=== PATIENT | male | born 1945 | race Caucasian/White ===

== ENCOUNTER 2016-07-24 15:55 | Observation (INO) | payer OTHER, BC ==
--- NOTE | 2016-07-24 16:16 | PDOC ---
History of Present Illness - General History Source: Patient, Family, Old Records Exam Limitations: No Limitations - History of Present Illness Initial Comments: 07/24/16 17:25 The patient is a 71 year old male with a significant past medical history of anemia, diabetes, HTN, colitis, advanced chronic kidney disease, and chronic GI bleeding, who presents to the emergency department today for further evaluation of weakness for over one month. The patient states that on Wednesday he received blood work and when his results came back today his hemoglobin level was 6.6. The patients doctor instructed him to come to the hospital for further assistance. The patient notes that he has associated low energy and dyspnea on mild exertion of 1 block. The patient notes that on 06/24/16 his anemia was treated with IV iron and procrit. The patient reports that on 06/25/16 he received a transfusion (2 units) subsequent Hemoglobin was 9.0. The patient reports he had a colonoscopy showing non-specific colitis and upper endoscopy that was negative on 07/08/16. As per patient's family, Dr. Pena' initial reports indicated left sided colitis, possibly crohn's disease but, a biopsy indicated negative for crohn's. The patient states that he is scheduled for a capsule study this wednesday. The patient reports some melena but this has been chronic for more than a month. PCP: Dr. Zohaib De Jesus [phone] John Zarate [phone] HOSPITAL PERSONNEL DIRECTOR: Dr. Davide Martínez [phone] RN OR LVN: Dr. Weston Pena [phone]: [address] Iván Travis [phone] UROLOGIST: Dr. Pk Ennis [phone] THORACIC SURGEON: Dr. Mignon Bella [phone] ADRENAL SURGEON: Dr. Kiara Garner [phone] The patient denies fever, chills, and sweats. The patient denies nausea, vomiting, and diarrhea. The patient denies chest pain and cough. PAST MEDICAL HISTORY: Anemia, Diabetes, HTN, advanced chronic kidney disease, colitis, chronic GI bleeding PAST SURGICAL HISTORY: Left lung surgery (1 resection) for removal of cancerous tumor (2010), bilateral hip replacement. 1 recall replacement of left hip, benign adrenalectomy at time of lung surgery, appendectomy, tonsillectomy, cholecystectomy FAMILY HISTORY: Mother had diabetes. SOCIAL HISTORY: Quit smoking 20 years ago. Drinks once per month. MEDICATIONS: Reviewed ALLERGIES: As per nursing notes 07/24/16 17:51 <Antonio De La O - Last Filed: 07/24/16 17:50> <Dario Pratt - Last Filed: 07/24/16 17:52> - General Chief Complaint: Weakness Stated Complaint: LOW BLOOD COUNT Time Seen by Provider: 07/24/16 16:04 Past History <Antonio De La O - Last Filed: 07/24/16 17:50> - Past Medical History Asthma: (COPD) Cancer: Yes (LUNG CA) Cardiac Disorders: Yes COPD: Yes Diabetes: Yes HTN: Yes Hypercholesterolemia: Yes Other medical history: ESRD STG4 - Psycho/Social/Smoking Cessation Hx Anxiety: No Suicidal Ideation: No Smoking History: Never smoked Hx Alcohol Use: No Drug/Substance Use Hx: No Substance Use Type: None <Dario Pratt - Last Filed: 07/24/16 17:52> - Past Medical History Allergies/Adverse Reactions: Allergies Allergy/AdvReac Type Severity Reaction Status Date / Time No Known Allergies Allergy Verified 07/24/16 15:56 Home Medications: Ambulatory Orders Aclidinium [place] [Tudorza Pressair] 400 mcg IH DAILY 07/24/16 Albuterol Sulfate [Proair Respiclick] 90 mcg IH DAILY 07/24/16 Aspirin [Ecotrin] 325 mg PO DAILY 07/24/16 Dicyclomine HCl [Bentyl -] 0 mg PO Q8H PRN 07/24/16 Diltiazem Cd [Cardizem Cd -] 180 mg PO DAILY 07/24/16 Escitalopram Oxalate [Lexapro -] 20 mg PO DAILY 07/24/16 Fenofibric Acid [Trilipix -] 135 mg PO DAILY 07/24/16 Ferrous Sulfate [Feosol] 325 mg PO DAILY 07/24/16 Folic Acid 0.8 mg PO DAILY 07/24/16 Hydralazine HCl 100 mg PO BID 07/24/16 Hydrochlorothiazide [Hctz -] 25 mg PO DAILY 07/24/16 Insulin Glargine,Hum.rec.anlog [Lantus Solostar PEN (NF)] 38 units SQ DAILY 03/30 Mometasone Furoate [Asmanex] 220 mcg IH DAILY 07/24/16 Niacin (Inositol Niacinate) [Niacin Flush Free 500 mg Cap] 500 mg PO BID [place]-3/Dha/Epa/Fish Oil [[place] 3 500 Softgel] 2 each PO DAILY 07/24/16 Omeprazole 40 mg PO DAILY 07/24/16 Rosuvastatin Calcium [Crestor] 10 mg PO DAILY 07/24/16 Salmeterol Xinafoate [Serevent Diskus] 50 mcg IH DAILY 07/24/16 Sodium Bicarbonate - 650 mg PO BID 07/24/16 Testosterone [Androgel] 10 gm TD DAILY 07/24/16 Zolpidem Tartrate [Ambien] 10 mg PO HS 07/24/16 Review of Systems - Review of Systems Able to Perform ROS?: Yes Comments:: 07/24/16 17:26 CONSTITUTIONAL: Present: Generalized Weakness Absent: Fever, Chills, Diaphoresis, Malaise, Loss of Appetite HEENT: Absent: Rhinorrhea, Nasal Congestion, Throat Pain, Throat Swelling, Difficulty Swallowing, Mouth Swelling, Ear Pain, Eye Pain, Visual Changes CARDIOVASCULAR: Absent: Chest Pain, Syncope, Palpitations, Irregular Heart Rate, Lightheadedness , Peripheral Edema RESPIRATORY: Present: SOB with exertion Absent: Cough, Orthopnea, Wheezing, Stridor, Hemoptysis GASTROINTESTINAL: Present: Melena Absent: Abdominal pain, Abdominal Distension, Nausea, Vomiting, Diarrhea, Constipation, Hematochezia GENITOURINARY: Absent: Dysuria, Frequency, Urgency, Hesitancy, Flank Pain, Genital Pain MUSCULOSKELETAL: Absent: Myalgia, Arthralgia, Joint Swelling, Back pain, Neck Pain SKIN: Absent: Rash, Itching, PalloR HEMATOLOGIC/IMMUNOLOGIC: Absent: Easy Bleeding, Easy Bruising, Lymphadenopathy, Frequent infections ENDOCRINE: Absent: Unexplained Weight Gain, Unexplained Weight Loss, Heat Intolerance, Cold Intolerance NEUROLOGIC: Absent: Headache, Focal Weakness, Paresthesias, Vertigo, Lightheadedness, Unsteady Gait, Seizure, Mental Status Changes, Incontinence PSYCHIATRIC: Absent: Anxiety, Depression <Antonio De La O - Last Filed: 07/24/16 17:50> *Physical Exam - Vital Signs Last Vital Signs Temp Pulse Resp BP Pulse Ox 99.0 F 76 20 134/76 100 07/24/16 15:56 07/24/16 15:56 07/24/16 15:56 07/24/16 15:56 07/24/16 15:56 - Physical Exam Comments: 07/24/16 17:26 GENERAL: The patient is awake, alert, and fully oriented, in no acute distress. HEAD: Normal with no signs of trauma. EYES: Pupils equal, round and reactive to light, extraocular movements intact, sclera anicteric, (+) Eye pale conjunctiva ENT: Ears normal, nares patent, oropharynx clear without exudates. Moist mucous membranes. NECK: Normal range of motion, supple without lymphadenopathy, JVD, or masses. LUNGS: Breath sounds equal, clear to auscultation bilaterally. No wheezes, and no crackles. HEART: Regular rate and rhythm, normal S1 and S2 without murmur, rub or gallop. ABDOMEN: Soft, nontender, normoactive bowel sounds. No guarding, no rebound. No masses. RECTAL: (+) No external lesions, stool is brown with small flecks of red, no masses. EXTREMITIES: Normal range of motion, (+) trace pitting bilateral ankle edema . No clubbing or cyanosis. No cords, erythema, or tenderness. NEUROLOGICAL: Cranial nerves II through XII grossly intact. Normal speech. PSYCH: Normal mood, normal affect. SKIN: Warm, Dry, normal turgor, no rashes or lesions noted. <Antonio De La O - Last Filed: 07/24/16 17:50> - Vital Signs Last Vital Signs Temp Pulse Resp BP Pulse Ox 99.0 F 76 20 134/76 100 07/24/16 15:56 07/24/16 15:56 07/24/16 15:56 07/24/16 15:56 07/24/16 15:56 <Dario Pratt - Last Filed: 07/24/16 17:52> Heart Score/ECG Review - ECG Impressions Comment:: 07/24/16 17:27 Twelve-lead EKG was performed and reviewed by me. There is normal sinus rhythm at a rate of 73 beats per minute. The axis is normal. The intervals are normal. Inferior Q waves without acute ST-T wave changes, no old ECG for comparison. There are no abnormal ST elevations or depressions. There are no significant T wave abnormalities. Impression: Possible inferior infarct, age indeterminate. <Antonio De La O - Last Filed: 07/24/16 17:50> ED Treatment Course - LABORATORY CBC & Chemistry Diagram: 07/24/16 16:23 07/24/16 16:25 - ADDITIONAL ORDERS Additional order review: Laboratory Results 07/24/16 07/24/16 07/24/16 16:25 16:25 16:25 INR Sodium 138 Potassium 4.5 Chloride 104 Carbon Dioxide 24 Anion Gap 10 BUN 58 H Creatinine 3.7 H Creat Clearance w eGFR 16.32 Random Glucose 164 H Calcium 8.8 Total Bilirubin 0.5 AST 32 ALT 16 Alkaline Phosphatase 42 LD Total Creatine Kinase 252 H CK-MB (CK-2) Cancelled 7.1 H CK-MB (CK-2) Rel Index 2.8 Troponin I 0.03 Total Protein 6.0 L Albumin 3.6 Urine Color Urine Appearance Urine pH Ur Specific [place] Urine Protein Urine Glucose (UA) Urine Ketones Urine Blood Urine Nitrite Urine Bilirubin Urine Urobilinogen Ur Leukocyte Esterase Urine RBC Urine WBC Urine Bacteria Stool Occult Blood Crossmatch 07/24/16 07/24/16 07/24/16 16:23 16:23 16:23 INR 1.07 Sodium Potassium Chloride Carbon Dioxide Anion Gap BUN Creatinine Creat Clearance w eGFR Random Glucose Calcium Total Bilirubin AST ALT Alkaline Phosphatase LD Total 203 H Creatine Kinase CK-MB (CK-2) CK-MB (CK-2) Rel Index Troponin I Total Protein Albumin Urine Color Urine Appearance Urine pH Ur Specific [place] Urine Protein Urine Glucose (UA) Urine Ketones Urine Blood Urine Nitrite Urine Bilirubin Urine Urobilinogen Ur Leukocyte Esterase Urine RBC Urine WBC Urine Bacteria Stool Occult Blood Crossmatch See Detail 07/24/16 16:23 INR Sodium Potassium Chloride Carbon Dioxide Anion Gap BUN Creatinine Creat Clearance w eGFR Random Glucose Calcium Total Bilirubin AST ALT Alkaline Phosphatase LD Total Creatine Kinase CK-MB (CK-2) CK-MB (CK-2) Rel Index Troponin I Total Protein Albumin Urine Color Yellow Urine Appearance Clear Urine pH 5.0 Ur Specific [place] 1.020 Urine Protein 2+ H Urine Glucose (UA) Negative Urine Ketones Negative Urine Blood Negative Urine Nitrite Negative Urine Bilirubin Negative Urine Urobilinogen 0.2 e.u/dl Ur Leukocyte Esterase Negative Urine RBC 0-2 Urine WBC 0-1 Urine Bacteria Few Stool Occult Blood Negative Crossmatch 07/24/16 16:23 RBC 2.43 L MCV 89.0 MCHC 32.7 RDW 14.3 MPV 8.9 Neutrophils % 74.1 Lymphocytes % 13.9 Monocytes % 5.7 Eosinophils % 4.3 Basophils % 2.0 <Antonio De La O - Last Filed: 07/24/16 17:50> - LABORATORY CBC & Chemistry Diagram: 07/24/16 16:23 07/24/16 16:25 <Dario Pratt - Last Filed: 07/24/16 17:52> Medical Decision Making - Medical Decision Making 07/24/16 16:52 Symphony microblogged. 07/24/16 17:00 Dr. Figueroa called ER. Case discussed with Dr. Pratt, agreed to admit to observation. <Antonio De La O - Last Filed: 07/24/16 17:50> - Medical Decision Making 07/24/16 16:57 Patient is a 71-year-old man with a history of hypertension, diabetes, advanced chronic kidney disease not yet on dialysis, anemia, colitis, chronic GI bleeding. In June he was transfused for a hemoglobin of 6.8, received 2 units. EGD was normal. Colonoscopy showed nonspecific colitis with a reportedly negative biopsy. I reviewed the EGD and colonoscopy report, but not the pathology report. Patient was seen by his physician for lab work on Wednesday and his hemoglobin was 6.6. He continues to have chronic exertional dyspnea upon one block of walking, no chest pain, no other complaints. On examination: Lungs are clear, heart is regular rhythm without murmur. Abdomen is benign. Rectal examination with brown stool, small flecks of red blood, no masses. Extremities with trace ankle edema bilaterally. Impression: Symptomatic anemia with very low hemoglobin. His anemia is out of proportion to his chronic kidney disease, suggesting also ongoing GI blood loss. He is currently undergoing evaluation with a sales force developer for his chronic anemia. Patient presents for transfusion per the recommendation of his primary physician. She has no ischemic chest pain symptoms. Twelve-lead EKG shows inferior Q waves that appear to be most likely chronic. Labs and troponin pending. Patient will be admitted to observation for plan to transfuse 2 units of packed red blood cells based on his hemoglobin of 6.6 from yesterday. <Dario Pratt - Last Filed: 07/24/16 17:52> *DC/Admit/Observation/Transfer - Attestations Scribe Attestion: 07/24/16 17:26 Documentation prepared by Antonio De La O, acting as medical hospital sales for Dario Pratt MD. <Antonio De La O - Last Filed: 07/24/16 17:50> - Discharge Dispostion Admit: Yes Decision to Admit order Date/Time: 07/24/16 17:[address] Thierry Figueroa <Dario Pratt - Last Filed: 07/24/16 17:52> Diagnosis at time of Disposition: Anemia Qualifiers: Anemia type: unspecified type Qualified Code(s): D64.9 - Anemia, unspecified Chronic kidney disease Qualifiers: Chronic kidney disease stage: unspecified stage Qualified Code(s): N18.9 - Chronic kidney disease, unspecified Dyspnea Qualifiers: Dyspnea type: dyspnea on exertion Qualified Code(s): R06.09 - Other forms of dyspnea - Discharge Dispostion Condition at time of disposition: Stable - Referrals Referrals: Zohaib Pizarro MD [Primary Care Provider] -
[2016-07-24 16:35] LABS: URINE APPEARANCE Clear; URINE BILIRUBIN Negative (NEGATIVE); URINE BLOOD Negative (NEGATIVE); URINE GLUCOSE (UA) Negative (NEGATIVE); URINE KETONE Negative (NEGATIVE); URINE LEUK ESTERASE Negative (NEGATIVE); URINE NITRITE Negative (NEGATIVE); URINE UROBILINOGEN 0.2 E.U/dl (0.2-1.0)
[2016-07-24 16:39] LABS: MCH 29.1 pg (25.7-33.7); MCHC 32.7 g/dl (32.0-35.9); URINE COLOR YELLOW; URINE PROTEIN 2+ (NEGATIVE); WHITE BLOOD COUNT 8.6 K/mm3 (4.0-10.0)
[2016-07-24 16:40] LABS: EOSINOPHIL 4.3 % (0-4.5); MEAN PLT VOLUME 8.9 fl (7.5-11.1); NEUTROPHILS 74.1 % (42.8-82.8); PLATELET COUNT 288 K/MM3 (134-434); RDW 14.3 % (11.9-15.9)
[2016-07-24 16:57] LABS: ALBUMIN 3.6 g/dl (3.5-5.0); BILIRUBIN,TOTAL 0.5 mg/dl (0.2-1.0); CALCIUM 8.8 mg/dl (8.4-10.2); CREATININE 3.7 mg/dl (0.6-1.3)
[2016-07-24 16:59] LABS: INR 1.07 (0.82-1.09)
[2016-07-24 17:06] LABS: STOOL FOR OCCULT BLOOD NEGATIVE (NEGATIVE)
[2016-07-24 17:07] LABS: URINE BACTERIA FEW /hpf (NEGATIVE); URINE RBC 0-2 /hpf (0-3); URINE WBC 0-1 (3-5)
[2016-07-24 17:08] LABS: CK MB 7.1 ng/ml (0.3-4.0); TROPONIN I (DFP) 0.03 ng/ml (0.03-0.50)
[2016-07-24 18:19] LABS: FERRITIN 22.647 ng/ml (16.4-293.9)
[2016-07-24] MEDS ORDERED: DICYCLOMINE HCL 10 MG CAPSULE PO PRN (19:56)
[2016-07-24] MEDS ORDERED: ALBUTEROL SO4 6.7 GM HFA INHALER IH PRN (19:59)
[2016-07-24] MEDS ORDERED: HEMOQUE TEST 1 EACH EACH ONE (20:10)
--- NOTE | 2016-07-24 21:38 | HP ---
CHIEF COMPLAINT: Generalized weakness/anemia PCP: Dr. De Jesus and Dr. John Zarate [phone] REGISTERED RADIATION THERAPIST: Dr. Davide Martínez [phone] DAM ATTENDANT: Dr. Weston Pena [phone]: [address] Iván Travis [phone] UROLOGIST: Dr. Pk Ennis [phone] THORACIC SURGEON: Dr. Mignon Bella [phone] ADRENAL SURGEON: Dr. Kiara Garner [phone] HISTORY OF PRESENT ILLNESS: This is a 71 year old male with a significant past medical history of anemia, diabetes, HTN, colitis, CKD, COPD, and chronic GI bleeding, who presents to the emergency department today for further evaluation of weakness for over one month. The patient states that on Wednesday he had blood work done and when his results came back today his hemoglobin level was 6.6. The patients doctor instructed him to come to the hospital for further assistance. The patient notes that he has associated low energy and dyspnea on mild exertion of 1 block. The patient notes that on 06/24/16 his anemia was treated with IV iron and procrit. The patient reports that on 06/25/16 he received a transfusion (2 units) subsequent Hemoglobin was 9.0. The patient reports he had a colonoscopy showing non-specific colitis and upper endoscopy that was negative on 07/08/16. The patient states that he is scheduled for a capsule study this wednesday. The patient reports some melena but this has been chronic for more than a month and he has stopped taking his iron as a result. He states that he is not sure if his doctor told him it was ok to stop taking the iron. ER course was notable for: (1) hgb 7.1 (2) rectal with brown stool with red flecks, occult negative in lab (3) Cr 3.7 but pt does not know baseline Recent Travel: none out of country PAST MEDICAL HISTORY: anemia diabetes HTN colitis CKD stage 4? COPD chronic GI bleeding PAST SURGICAL HISTORY: Left lung surgery (1 resection) for removal of cancerous tumor (2010) benign adrenalectomy at time of lung surgery bilateral hip replacement. 1 recall replacement of left hip appendectomy tonsillectomy Social History: Smoking: quit 20 years ago Alcohol: occ- once per month Drugs: occ marijuana Family History: mother with DM brother age 63, pancreatic CA father old age 93 Allergies No Known Allergies Allergy (Verified 07/24/16 15:56) HOME MEDICATIONS: 3 Medication Instructions Recorded Aclidinium [place] [Tudorza 400 mcg IH DAILY 07/24/16 Pressair] Albuterol Sulfate [Proair 90 mcg IH DAILY 07/24/16 Respiclick] Aspirin [Ecotrin] 325 mg PO DAILY 07/24/16 Dicyclomine HCl [Bentyl -] 0 mg PO Q8H PRN 07/24/16 Diltiazem Cd [Cardizem Cd -] 180 mg PO DAILY 07/24/16 Escitalopram Oxalate [Lexapro -] 20 mg PO DAILY 07/24/16 Fenofibric Acid [Trilipix -] 135 mg PO DAILY 07/24/16 Ferrous Sulfate [Feosol] 325 mg PO DAILY 07/24/16 Folic Acid 0.8 mg PO DAILY 07/24/16 Hydralazine HCl 100 mg PO BID 07/24/16 Hydrochlorothiazide [Hctz -] 25 mg PO DAILY 07/24/16 Insulin Glargine,Hum.rec.anlog 38 units SQ DAILY 07/24/16 [Lantus Solostar PEN (NF)] Mometasone Furoate [Asmanex] 220 mcg IH DAILY 07/24/16 Niacin (Inositol Niacinate) 500 mg PO BID 07/24/16 [Niacin Flush Free 500 mg Cap] [place]-3/Dha/Epa/Fish Oil [[place] 3 2 each PO DAILY 07/24/16 500 Softgel] Omeprazole 40 mg PO DAILY 07/24/16 Rosuvastatin Calcium [Crestor] 10 mg PO DAILY 07/24/16 Salmeterol Xinafoate [Serevent 50 mcg IH DAILY 07/24/16 Diskus] Sodium Bicarbonate - 650 mg PO BID 07/24/16 Testosterone [Androgel] 10 gm TD DAILY 07/24/16 Zolpidem Tartrate [Ambien] 10 mg PO HS 07/24/16 REVIEW OF SYSTEMS CONSTITUTIONAL: Present: generalized weakness Absent: fever, chills, diaphoresis, malaise, loss of appetite, weight change HEENT: Absent: rhinorrhea, nasal congestion, throat pain, throat swelling, difficulty swallowing, mouth swelling, ear pain, eye pain, visual changes CARDIOVASCULAR: Absent: chest pain, syncope, palpitations, irregular heart rate, lightheadedness , peripheral edema RESPIRATORY: Present: dyspnea with exertion Absent: cough, shortness of breath, orthopnea, wheezing, stridor, hemoptysis GASTROINTESTINAL: Absent: abdominal pain, abdominal distension, nausea, vomiting, diarrhea, constipation, melena, hematochezia GENITOURINARY: Absent: dysuria, frequency, urgency, hesitancy, hematuria, flank pain, genital pain MUSCULOSKELETAL: Absent: myalgia, arthralgia, joint swelling, back pain, neck pain SKIN: Absent: rash, itching, pallor HEMATOLOGIC/IMMUNOLOGIC: Absent: easy bleeding, easy bruising, lymphadenopathy, frequent infections ENDOCRINE: Absent: unexplained weight gain, unexplained weight loss, heat intolerance, cold intolerance NEUROLOGIC: Absent: headache, focal weakness or paresthesias, dizziness, unsteady gait, seizure, mental status changes, bladder or bowel incontinence PSYCHIATRIC: Absent: anxiety, depression, suicidal or homicidal ideation, hallucinations. PHYSICAL EXAMINATION Vital Signs - 24 hr 3 07/24/16 07/24/16 07/24/16 15:56 19:00 20:19 Temperature 99.0 F 98.2 F 98.1 F Pulse Rate 76 Pulse Rate [ 78 72 Apical] Respiratory 20 18 17 Rate Blood Pressure 134/76 Blood Pressure 112/51 116/46 [Left Arm] O2 Sat by Pulse 100 98 100 Oximetry (%) GENERAL: Awake, alert, and fully oriented, in no acute distress. HEAD: Normal with no signs of trauma. EYES: Pupils equal, round and reactive to light, extraocular movements intact, sclera anicteric, conjunctiva clear, pale. No lid lag. EARS, NOSE, THROAT: Ears normal, nares patent, oropharynx clear without exudates. Moist mucous membranes. NECK: Normal range of motion, supple without lymphadenopathy, JVD, or masses. LUNGS: Breath sounds equal, clear to auscultation bilaterally. No crackles. No accessory muscle use. Scattered expiratory wheezes HEART: Regular rate and rhythm, normal S1 and S2 without murmur, rub or gallop. ABDOMEN: Soft, nontender, not distended, normoactive bowel sounds, no guarding, no rebound, no masses. No hepatomegaly or splenomegaly. MUSCULOSKELETAL: Normal range of motion at all joints. No bony deformities or tenderness. No CVA tenderness. UPPER EXTREMITIES: 2+ pulses, warm, well-perfused. No cyanosis. No clubbing. Cap refill <2 seconds. No peripheral edema. LOWER EXTREMITIES: 2+ pulses, warm, well-perfused. No calf tenderness. No peripheral edema. NEUROLOGICAL: Cranial nerves II-XII intact. Normal speech. Normal gait. PSYCHIATRIC: Cooperative. Good eye contact. Appropriate mood and affect. SKIN: Warm, dry, normal turgor, no rashes or lesions noted. Laboratory Results - last 24 hr 3 07/24/16 07/24/16 07/24/16 16:23 16:23 16:23 WBC 8.6 RBC 2.43 L Hgb 7.1 L Hct 21.7 L MCV 89.0 MCHC 32.7 RDW 14.3 Plt Count 288 MPV 8.9 Neutrophils % 74.1 Lymphocytes % 13.9 Monocytes % 5.7 Eosinophils % 4.3 Basophils % 2.0 Retic Count 5.82 H INR Sodium Potassium Chloride Carbon Dioxide Anion Gap BUN Creatinine Creat Clearance w eGFR POC Glucometer Random Glucose Calcium Ferritin 22.647 Total Bilirubin AST ALT Alkaline Phosphatase LD Total 203 H Creatine Kinase CK-MB (CK-2) CK-MB (CK-2) Rel Index Troponin I Total Protein Albumin Urine Color Yellow Urine Appearance Clear Urine pH 5.0 Ur Specific [place] 1.020 Urine Protein 2+ H Urine Glucose (UA) Negative Urine Ketones Negative Urine Blood Negative Urine Nitrite Negative Urine Bilirubin Negative Urine Urobilinogen 0.2 e.u/dl Ur Leukocyte Esterase Negative Urine RBC 0-2 Urine WBC 0-1 Urine Bacteria Few Stool Occult Blood Negative Blood Type Antibody Screen Crossmatch 3 07/24/16 07/24/16 07/24/16 07/24/16 16:23 16:23 16:25 20:18 WBC RBC Hgb Hct MCV MCHC RDW Plt Count MPV Neutrophils % Lymphocytes % Monocytes % Eosinophils % Basophils % Retic Count INR 1.07 Sodium 138 Potassium 4.5 Chloride 104 Carbon Dioxide 24 Anion Gap 10 BUN 58 H Creatinine 3.7 H Creat Clearance w eGFR 16.32 POC Glucometer [id number] Random Glucose 164 H Calcium 8.8 Ferritin Total Bilirubin 0.5 AST 32 ALT 16 Alkaline Phosphatase 42 LD Total Creatine Kinase 252 H CK-MB (CK-2) 7.1 H CK-MB (CK-2) Rel Index 2.8 Troponin I Total Protein 6.0 L Albumin 3.6 Urine Color 0.03 Urine Appearance Urine pH Ur Specific [place] Urine Protein Urine Glucose (UA) Urine Ketones Urine Blood Urine Nitrite Urine Bilirubin Urine Urobilinogen Ur Leukocyte Esterase Urine RBC Urine WBC Urine Bacteria Stool Occult Blood Blood Type B POSITIVE Antibody Screen Negative Crossmatch See Detail ECG: Sinus rhythm rate 73, T wave flattening lead 3, avF, Q waves 2,3,aVF, cannot r/o inferior infarct, age undetermined ASSESSMENT/PLAN: 71yM with PMH anemia, diabetes, HTN, colitis, CKD, COPD, and chronic GI bleeding who presented to the ED with generalized weakness and low hemoglobin. He is being admitted for observation and treatment of his anemia. Anemia - likely multifactorial: CKD and chronic GI bleed - 2uPRBC, lasix 40mg x 1 in between units - CBC in am. - f/u with renal and GI as outpatient as planned - advised to f/u with PCP regarding iron therapy, will continue for now. CKD - unknown baseline Creatinine, ED note states stage 4 - cont supportive care - f/u with renal as outpatient COPD - cont home meds - proair albuterol PRN DVT PPX - low risk as expected LOS <48h, encouraged ambulation FEN - no IVF, tolerating PO - BMP in AM - renal, diabetic, low sodium diet Dispo: pt currently requires inpatient care. Visit type - Emergency Visit Emergency Visit: Yes ED Registration Date: 07/24/16 Care time: The patient presented to the Emergency Department on the above date and was hospitalized for further evaluation of their emergent condition. - New Patient This patient is new to me today: Yes Date on this admission: 07/24/16 - Critical Care Critical Care patient: No
[2016-07-24] MEDS ORDERED: ZOLPIDEM TARTRATE 5 MG TABLET PO PRN ×2 (22:00)
[2016-07-24] MEDS: SODIUM BICARBONATE 650 MG TABLET PO SCH (22:17)
[2016-07-24] MEDS: hydrALAZINE HCL 50 MG TABLET (FP) PO SCH (22:17)
[2016-07-24] MEDS: INSULIN DETEMIR 100 UNITS/ML MDV SQ SCH (22:18)
[2016-07-24] MEDS: INSULIN SLIDING SCALE (NOVOLOG) 1 VIAL SQ SCH (22:22)
[2016-07-24] MEDS ORDERED: FUROSEMIDE 40 MG/4 ML INJECTABLE VIAL IVPUSH ONE (23:00)
[2016-07-24 23:30] VITALS: BMI 32.8
[2016-07-25] MEDS ORDERED: ZOLPIDEM TARTRATE 5 MG TABLET ONE (00:19)
[2016-07-25] MEDS ORDERED: ZOLPIDEM TARTRATE 5 MG TABLET PO ONE (00:32)
[2016-07-25] MEDS: INSULIN SLIDING SCALE (NOVOLOG) 1 VIAL SQ SCH ×4 (07:30→22:38)
[2016-07-25] MEDS: INSULIN DETEMIR 100 UNITS/ML MDV SQ SCH ×2 (07:30→22:37)
[2016-07-25 08:06] LABS: SERUM IRON 36 ug/dL (38-169); TOTAL IRON BINDING CAPACITY 498 ug/dL (250-450); UIBC 462 ug/dL (111-343)
[2016-07-25 08:23] LABS: BASOPHIL 0.8 % (0-2.0); EOSINOPHIL 3.8 % (0-4.5); MCHC 32.6 g/dl (32.0-35.9); MEAN CELL VOLUME 88.9 fl (80-96); MEAN PLT VOLUME 8.4 fl (7.5-11.1); NEUTROPHILS 77.9 % (42.8-82.8); PLATELET COUNT 250 K/MM3 (134-434); RDW 13.7 % (11.9-15.9); WHITE BLOOD COUNT 8.2 K/mm3 (4.0-10.0)
[2016-07-25 08:51] LABS: CREATININE 3.6 mg/dl (0.6-1.3)
[2016-07-25] MEDS ORDERED: PT OWN MED DRAWER 7, Y5N ONE (09:54)
[2016-07-25] MEDS ORDERED: PATIENT'S OWN MEDICATION (NON-FORMULARY) (Salmeterol Xinafoate [Serevent Diskus] 50 MCG) IH SCH (10:00)
[2016-07-25] MEDS: MOMETASONE FUROATE 110 MCG/IH INHALER IH SCH (10:00)
[2016-07-25] MEDS ORDERED: TESTOSTERONE TD SCH (10:00)
[2016-07-25] MEDS ORDERED: FISH OIL PO SCH (10:00)
[2016-07-25] MEDS ORDERED: DHA PO SCH (10:00)
[2016-07-25] MEDS ORDERED: ACLIDINIUM BROMIDE 400 MCG/INH AERO.POWD IH SCH (10:00)
[2016-07-25] MEDS ORDERED: PATIENT'S OWN MEDICATION (NON-FORMULARY) (Folic Acid [Folic Acid] 0.8 MG) PO SCH (10:00)
[2016-07-25] MEDS ORDERED: OMEGA PO SCH (10:00)
[2016-07-25] MEDS ORDERED: EPA PO SCH (10:00)
[2016-07-25] MEDS ORDERED: [UNRECOGNIZED DRUG - OTHER] PO SCH (10:00)
[2016-07-25] MEDS: hydrALAZINE HCL 50 MG TABLET (FP) PO SCH ×2 (10:01→21:54)
[2016-07-25] MEDS: FERROUS SO4 325 MG TABLET (FP) PO SCH (10:01)
[2016-07-25] MEDS: SODIUM BICARBONATE 650 MG TABLET PO SCH ×2 (10:01→21:54)
[2016-07-25] MEDS: ASPIRIN 325 MG ENTERIC COATED TABLET (FP) PO SCH (10:01)
[2016-07-25] MEDS: ROSUVASTATIN CA 10 MG TABLET (FP) PO SCH (10:02)
[2016-07-25] MEDS: ESCITALOPRAM OXALATE 20 MG TABLET (FP) PO SCH (10:02)
[2016-07-25] MEDS: HYDROCHLOROTHIAZIDE 25 MG TABLET (FP) PO SCH (10:02)
[2016-07-25] MEDS: PANTOPRAZOLE 40 MG TABLET (FP) PO SCH (10:02)
[2016-07-25] MEDS: FENOFIBRIC ACID 135 MG CAP PO SCH (10:02)
[2016-07-25] MEDS: NIACIN 500 MG TABLET PO SCH (10:04)
[2016-07-25] MEDS ORDERED: INSULIN (NOVOLOG) ASPART 100 UNITS/ML 10ML VIAL ONE (12:33)
--- NOTE | 2016-07-25 14:52 | PN ---
Physical Exam: SUBJECTIVE: Patient seen and examined, denies CP/SOB, denies any N/V/D, reports moving his bowel and is (+) for black stools, had stopped taken iron pill for quite some time. OBJECTIVE: 71yM with PMHx anemia, diabetes, HTN, colitis, CKD, COPD, and chronic GI bleeding who presented to the ED with generalized weakness and low hemoglobin. He is being admitted for observation and treatment of his anemia. Last Vital Signs Temp Pulse Resp BP Pulse Ox 98.5 F 65 18 157/57 98 07/25/16 14:24 07/25/16 14:24 07/25/16 14:24 07/25/16 14:24 07/25/16 14:24 GENERAL: The patient is awake, alert, and fully oriented, in no acute distress. HEAD: Normal with no signs of trauma. EYES: PERRL, extraocular movements intact, sclera anicteric, conjunctiva clear. No ptosis. ENT: Ears normal, nares patent, oropharynx clear without exudates, moist mucous membranes. NECK: Trachea midline, full range of motion, supple. LUNGS: Breath sounds equal, clear to auscultation bilaterally, no wheezes, no crackles, no accessory muscle use. HEART: Regular rate and rhythm, S1, S2 without murmur, rub or gallop. ABDOMEN: Soft, nontender, nondistended, normoactive bowel sounds, no guarding, no rebound, no hepatosplenomegaly, no masses. EXTREMITIES: 2+ pulses, warm, well-perfused, no edema. NEUROLOGICAL: AAOx3. Normal speech, gait steady PSYCH: Normal mood, normal affect. SKIN: Warm, dry, normal turgor, no rashes or lesions noted Laboratory Results - last 24 hr 07/24/16 07/24/16 07/25/16 20:18 21:56 06:31 WBC RBC Hgb Hct MCV MCHC RDW Plt Count MPV Neutrophils % Lymphocytes % Monocytes % Eosinophils % Basophils % Sodium Potassium Chloride Carbon Dioxide Anion Gap BUN Creatinine POC Glucometer [phone] 149 Random Glucose Calcium 07/25/16 07/25/16 07:30 07:30 WBC 8.2 RBC 3.08 L D Hgb 8.9 L D Hct 27.4 L D MCV 88.9 MCHC 32.6 RDW 13.7 Plt Count 250 MPV 8.4 Neutrophils % 77.9 Lymphocytes % 10.7 D Monocytes % 6.8 Eosinophils % 3.8 Basophils % 0.8 Sodium 141 Potassium 3.9 Chloride 106 Carbon Dioxide 28 Anion Gap 7 L BUN 59 H Creatinine 3.6 H POC Glucometer Random Glucose 149 H Calcium 9.0 Active Medications Generic Name Dose Route Start Last Admin Trade Name Freq PRN Reason Stop Dose Admin Aclidinium Clifford puff 07/25/16 10:00 Tudorza - IH DAILY ASHLEY Albuterol Sulfate 2 puff 07/24/16 19:59 Ventolin Hfa Inhaler - IH Q6H PRN SHORT OF BREATH/WHEEZING Aspirin 325 mg 07/25/16 10:00 07/25/16 10:01 Ecotrin - PO 325 mg DAILY ASHLEY Administration Dicyclomine HCl 10 mg 07/24/16 19:56 Bentyl - PO Q8H PRN PAIN Diltiazem HCl 180 mg 07/25/16 10:00 07/25/16 10:01 Cardizem Cd - PO 180 mg DAILY ASHLEY Administration Escitalopram Oxalate 20 mg 07/25/16 10:00 07/25/16 10:02 Lexapro - PO 20 mg DAILY ASHLEY Administration Fenofibric Acid 135 mg 07/25/16 10:00 07/25/16 10:02 Trilipix - PO 135 mg DAILY ASHLEY Administration Ferrous Sulfate 325 mg 07/25/16 10:00 07/25/16 10:01 Feosol - PO 325 mg DAILY ASHLEY Administration Hydralazine HCl 100 mg 07/24/16 22:00 07/25/16 10:01 Apresoline - PO 100 mg BID ASHLEY Administration Hydrochlorothiazide 25 mg 07/25/16 10:00 07/25/16 10:02 Hctz - PO 25 mg DAILY ASHLEY Administration Insulin Aspart 1 vial 07/24/16 22:00 07/25/16 11:55 Novolog Vial Sliding Scale - SQ 2 unit ACHS [facility] Administration Protocol Insulin Detemir 19 units 07/24/16 22:00 07/25/16 07:30 Levemir Vial SQ 19 units BID@0700,2200 ASHLEY Administration Mometasone Furoate 2 puff 07/25/16 10:00 07/25/16 10:00 Asmanex 110mcg - IH 2 pfu DAILY ASHLEY Administration Niacin 500 mg 07/25/16 10:00 07/25/16 10:04 Niacin PO 500 mg DAILY ASHLEY Administration Non-Formulary Medication 0.8 mg 07/25/16 10:00 Folic Acid [Folic Acid] PO DAILY ASHLEY Non-Formulary Medication 2 each 07/25/16 10:00 [place]-3/Dha/Epa/Fish Oil [[place] 3 500 Softgel] PO DAILY ASHLEY Non-Formulary Medication 50 mcg 07/25/16 10:00 Salmeterol Xinafoate [Serevent Diskus] IH DAILY ASHLEY Non-Formulary Medication 10 gm 07/25/16 10:00 Testosterone [Androgel] TD DAILY ASHLEY Pantoprazole Sodium 40 mg 07/25/16 10:00 07/25/16 10:02 Protonix - PO 40 mg DAILY ASHLEY Administration Rosuvastatin Calcium 10 mg 07/25/16 10:00 07/25/16 10:02 Crestor - PO 10 mg DAILY ASHLEY Administration Sodium Bicarbonate 650 mg 07/24/16 22:00 07/25/16 10:01 Sodium Bicarbonate - PO 650 mg BID ASHLEY Administration Zolpidem Tartrate 5 mg 07/24/16 22:00 07/25/16 00:00 Ambien - PO 5 mg HS PRN Administration INSOMNIA ASSESSMENT/PLAN: Anemia - multifactorial in setting of CKD and chronic GI bleed -s/p 2uPRBC, H&H 8.9/27.4 from 7.1/21.7 - Patient reports still having some black stools, will monitor overnight, repeat CBC in AM, if remains stable may D/c in AM, pt has a follow up appt with GI this Wednesday for some ? outpt endoscopic procedure, also pt to follow up with renal, he reports that he is on a transplant list for kidney - close monitoring CKD - baseline Creatinine unknown, pt's brought in recent outpatient lab which reflects a creat level of >4 in June, ED note states stage 4 - cont supportive care - f/u with renal as outpatient COPD - stable - cont home meds - albuterol PRN -supplemental oxygen prn DVT PPX encouraged ambulation FEN - no IVF, tolerating PO - BMP in AM - renal, diabetic, low sodium diet Dispo: pt currently requires inpatient care. Visit type - Emergency Visit Emergency Visit: Yes ED Registration Date: 07/24/16 Care time: The patient presented to the Emergency Department on the above date and was hospitalized for further evaluation of their emergent condition. - New Patient This patient is new to me today: Yes Date on this admission: 07/25/16 - Critical Care Critical Care patient: No - Discharge Referral Referred to [facility] Med [facility] Yes
[2016-07-25] MEDS ORDERED: ZOLPIDEM TARTRATE 5 MG TABLET PO PRN (21:50)
[2016-07-26 08:49] LABS: CALCIUM 8.6 mg/dL (8.5-10.1); CREATININE 3.6 mg/dL (0.7-1.3)
[2016-07-26 09:08] LABS: MCH 29.6 pg (25.7-33.7); MCHC 33.2 g/dl (32.0-35.9); MEAN CELL VOLUME 89.4 fl (80-96); MEAN PLT VOLUME 8.6 fl (7.5-11.1); NEUTROPHILS 74.1 % (42.8-82.8); PLATELET COUNT 229 K/MM3 (134-434); RDW 14.7 % (11.9-15.9); WHITE BLOOD COUNT 7.1 K/mm3 (4.0-10.0)
[2016-07-26 09:09] LABS: BASOPHIL 1.7 % (0-2.0)
[2016-07-26] MEDS: INSULIN SLIDING SCALE (NOVOLOG) 1 VIAL SQ SCH (09:16)
[2016-07-26] MEDS ORDERED: PT OWN MED DRAWER 7, Y5N ONE (09:20)
[2016-07-26] MEDS: PANTOPRAZOLE 40 MG TABLET (FP) PO SCH (09:27)
[2016-07-26] MEDS: SODIUM BICARBONATE 650 MG TABLET PO SCH (09:27)
[2016-07-26] MEDS: FENOFIBRIC ACID 135 MG CAP PO SCH (09:28)
[2016-07-26] MEDS: INSULIN DETEMIR 100 UNITS/ML MDV SQ SCH (09:28)
[2016-07-26] MEDS: FERROUS SO4 325 MG TABLET (FP) PO SCH (09:29)
[2016-07-26] MEDS: ROSUVASTATIN CA 10 MG TABLET (FP) PO SCH (09:29)
[2016-07-26] MEDS: HYDROCHLOROTHIAZIDE 25 MG TABLET (FP) PO SCH (09:29)
[2016-07-26] MEDS: MOMETASONE FUROATE 110 MCG/IH INHALER IH SCH (09:30)
[2016-07-26] MEDS: hydrALAZINE HCL 50 MG TABLET (FP) PO SCH (09:30)
[2016-07-26] MEDS: ASPIRIN 325 MG ENTERIC COATED TABLET (FP) PO SCH (09:31)
[2016-07-26] MEDS: ESCITALOPRAM OXALATE 20 MG TABLET (FP) PO SCH (09:31)
[2016-07-26] MEDS: NIACIN 500 MG TABLET PO SCH (09:32)
--- NOTE | 2016-07-26 09:44 | DS ---
Physical Exam: SUBJECTIVE: Patient seen and examined at bedside. Feels well. No complaints. OBJECTIVE: Vital Signs Period Temp Pulse Resp BP Sys/Rodriguez Pulse Ox Last 24 Hr 98.5 F-99.1 F 63-85 17-18 140-157/57-67 98-100 PHYSICAL EXAM GENERAL: The patient is awake, alert, and fully oriented, in no acute distress. HEAD: Normal with no signs of trauma. EYES: PERRL, extraocular movements intact, sclera anicteric, conjunctiva clear. LUNGS: Breath sounds equal, clear to auscultation bilaterally, no wheezes, no crackles, no accessory muscle use. HEART: Regular rate and rhythm, S1, S2 without murmur, rub or gallop. ABDOMEN: Soft, nontender, nondistended, normoactive bowel sounds, no guarding, no rebound EXTREMITIES: 2+ pulses, warm, well-perfused, no edema. NEUROLOGICAL: Cranial nerves II through XII grossly intact. Normal speech, gait not observed. Laboratory Results - last 24 hr 07/25/16 07/26/16 07/26/16 22:00 06:30 06:30 WBC 7.1 RBC 3.06 L Hgb 9.1 L Hct 27.3 L MCV 89.4 MCHC 33.2 RDW 14.7 Plt Count 229 MPV 8.6 Neutrophils % 74.1 Lymphocytes % 13.4 Monocytes % 6.8 Eosinophils % 4.0 Basophils % 1.7 Sodium 142 Potassium 3.8 Chloride 104 Carbon Dioxide 27 Anion Gap 11 BUN 56 H Creatinine 3.6 H Random Glucose 132 H Calcium 8.6 Stool Occult Blood Negative HOSPITAL COURSE: Date of Admission:07/24/16 Date of Discharge: 07/26/16 The patient is a 71 year old male with a significant past medical history of anemia, diabetes, HTN, colitis, advanced chronic kidney disease, and chronic GI bleeding, who presented to the emergency department with a complaint of weakness x 1 month. The patient stated that on Wednesday he received blood work and when his results came back his hemoglobin level was 6.6. The patients doctor instructed him to come to the hospital for further assistance. The patient noted that on 06/24/16 his anemia was treated with IV iron and procrit. The patient reports that on 06/25/16 he received a transfusion (2 units ) and his subsequent hemoglobin was 9.0. The patient reports he had a colonoscopy showing non-specific colitis and upper endoscopy that was negative on 07/08/16. As per patient's family, Dr. Pena' initial reports indicated left sided colitis, possibly crohn's disease but, a biopsy indicated negative for crohn's. The patient stated that he is scheduled for a capsule study this Wednesday. The patient reported some melena but this has been chronic for more than a month. Anemia of chronic disease Acute blood loss anemia --multifactorial causes for anemia, CKD and chronic GI bleed --s/p 2 units PRBC, Hgb 7.1-->8.9 --stool occult negative x 2 --h/h stable at time of discharge CKD, Stage IV - baseline creatinine unknown, pt's brought in recent outpatient lab which showed Cr >4 in June 2016 --on transplant list COPD --stable, continued home meds Minutes to complete discharge: 35 Discharge Summary Reason For Visit: ANEMIA/DYSPNEA/CHRONIC DISEASE Current Active Problems Anemia (Acute) Chronic kidney disease (Acute) Dyspnea (Acute) Condition: Stable - Instructions Diet, Activity, Other Instructions: Return to the emergency department for any new or worsening symptoms. Referrals: Zohaib Pizarro MD [Primary Care Provider] - Disposition: HOME - Home Medications Comprehensive Discharge Medication List: Ambulatory Orders Aclidinium [place] [Tudorza Pressair] 400 mcg IH DAILY 07/24/16 Albuterol Sulfate [Proair Respiclick] 90 mcg IH DAILY 07/24/16 Aspirin [Ecotrin] 325 mg PO DAILY 07/24/16 Dicyclomine HCl [Bentyl -] 0 mg PO Q8H PRN 07/24/16 Diltiazem Cd [Cardizem Cd -] 180 mg PO DAILY 07/24/16 Escitalopram Oxalate [Lexapro -] 20 mg PO DAILY 07/24/16 Fenofibric Acid [Trilipix -] 135 mg PO DAILY 07/24/16 Ferrous Sulfate [Feosol] 325 mg PO DAILY 07/24/16 Folic Acid 0.8 mg PO DAILY 07/24/16 Hydralazine HCl 100 mg PO BID 07/24/16 Hydrochlorothiazide [Hctz -] 25 mg PO DAILY 07/24/16 Insulin Glargine,Hum.rec.anlog [Lantus Solostar PEN -] 38 units SQ DAILY Mometasone Furoate [Asmanex] 220 mcg IH DAILY 07/24/16 Niacin (Inositol Niacinate) [Niacin Flush Free 500 mg Cap] 500 mg PO BID [place]-3/Dha/Epa/Fish Oil [[place] 3 500 Softgel] 2 each PO DAILY 07/24/16 Omeprazole 40 mg PO DAILY 07/24/16 Rosuvastatin Calcium [Crestor] 10 mg PO DAILY 07/24/16 Salmeterol Xinafoate [Serevent Diskus] 50 mcg IH DAILY 07/24/16 Sodium Bicarbonate - 650 mg PO BID 07/24/16 Testosterone [Androgel] 10 gm TD DAILY 07/24/16 This patient is new to me today: Yes Date on this admission: 07/27/16 Emergency Visit: Yes ED Registration Date: 07/24/16 Care time: The patient presented to the Emergency Department on the above date and was hospitalized for further evaluation of their emergent condition. Critical Care patient: No - Discharge Referral Referred to [facility] Med P.C.: Yes Physician Referral: Zohaib Pizarro MD (Int Med)
--- NOTE | 2016-07-26 10:33 | EKG ---
Test Reason : Blood Pressure : / mmHG Vent. Rate : 073 BPM Atrial Rate : 073 BPM P-R Int : 152 ms QRS Dur : 100 ms QT Int : 440 ms P-R-T Axes : 068 038 070 degrees QTc Int : 484 ms POOR DATA QUALITY, INTERPRETATION MAY BE ADVERSELY AFFECTED NORMAL SINUS RHYTHM CANNOT RULE OUT INFERIOR INFARCT , AGE UNDETERMINED NONSPECIFIC ST ABNORMALITY ABNORMAL ECG NO PREVIOUS ECGS AVAILABLE Confirmed by JESSICA SWAIN MD ([id number]) on 07/26/2016 10:33:07 AM Referred By: MD ZHU Confirmed By:JESSICA SWAIN MD
[2016-07-26 14:15] VITALS: BP 174/83; PULSE 91; TEMP 98.8
== END 2016-07-26 13:00 | disposition home or self-care (01) ==
LOC: FER 15:55 → FM/S 19:53 → UNDOADMIN 21:37 → FM/S 21:37
PROVIDERS: ADMIT Internal Medicine; ATTEND Nurse Practitioner Acute Care
PROC: 30233N1 Transfusion of Nonautologous Red Blood Cells into Peripheral Vein, Percutaneous Approach (ICD-10-PCS; principal; 2016-07-24)
DX: D63.1 Anemia in chronic kidney disease (principal); I12.9 Hypertensive chronic kidney disease with stage 1 through stage 4 chronic kidney disease, or unspecified chronic kidney disease; N18.4 Chronic kidney disease, stage 4 (severe); J44.9 Chronic obstructive pulmonary disease, unspecified; E11.9 Type 2 diabetes mellitus without complications; D62 Acute posthemorrhagic anemia; K52.89 Other specified noninfective gastroenteritis and colitis
CPT/HCPCS: 36430; P9021; 36415; 80048; 80053; 81003; 81015; 82272; 82550; 82553; 82607; 82728; 82746; 83010; 83540; 83550; 83615; 84484; 85025; 85044; 85610; 86850; 86900; 86901; 86922; 93005; 99284-25; G0378; P9038; P9058

== ENCOUNTER 2018-04-06 09:22 | Day surgery (SDC) | payer OTHER, BC ==
[2018-04-05 12:22] VITALS: BMI 32.9
[2018-04-06] MEDS: PHENYLEPHRINE 2.5% OPHTH SOLN 15 ML BOTTLE ONE ×3 (10:10→10:20)
[2018-04-06] MEDS: TROPICAMIDE 1% OPHTH SOLN 15 ML BOTTLE ONE ×3 (10:10→10:20)
[2018-04-06] MEDS: CYCLOPENTOLATE 2% OPHTH SOLN 2 ML BOTTLE ONE ×3 (10:10→10:20)
[2018-04-06] MEDS: CIPROFLOXACIN 0.3% EYE DROPS 5 ML BOTTLE ONE ×3 (10:10→10:20)
[2018-04-06] MEDS ORDERED: MIDAZOLAM HCL 2 MG/2 ML SINGLE DOSE VIAL ONE ×2 (10:50→11:02)
[2018-04-06] MEDS ORDERED: ACETAMINOPHEN 325 MG TABLET (FP) ONE (12:44)
[2018-04-06] MEDS ORDERED: ONDANSETRON 4 MG/2 ML VIAL IVPUSH PRN (12:45)
[2018-04-06] MEDS ORDERED: LACTATED RINGERS SOLUTION 1,000 ML IV SCH (12:45)
[2018-04-06] MEDS ORDERED: ACETAMINOPHEN 325 MG TABLET (FP) PO PRN (12:45)
--- NOTE | 2018-04-06 12:53 | OP ---
DATE OF OPERATION: 04/06/2018 OPERATIVE PROCEDURE: Lens Phacoemulsification with Posterior Chamber Intraocular Lens Placement Left Eye PREOPERATIVE DIAGNOSIS: Visually Significant Cataract of Left Eye POSTOPERATIVE DIAGNOSIS: Visually Significant Cataract of Left Eye SURGEON: Tejas Mauricio M.D. ANESTHESIA: MAC ANESTHESIOLOGIST: PROCEDURE: The patient was brought to the operating room and placed under monitored anesthesia care by Anesthesia. A drop of Tetracaine was then placed over the left eye. The patient was then prepped and draped in the usual sterile manner. A speculum was then placed over the left eye. The eye was then well irrigated with copious amounts of BSS (balanced salt solution). The operating microscope was then moved into position. A paracentesis was performed using a 15 degree blade. At this point 0.5 mL of 1% preservative-free lidocaine was injected into the anterior chamber. Amvisc plus was then injected into the anterior chamber. A clear corneal incision was then formed using a 2.2 mm keratome. A capsulorrhexis was then performed in a continuous circular fashion beginning with a cystotome, completed with an Utratas forceps. Hydrodissection was then performed using BSS on a cannula. The phaco probe was then introduced through the corneal wound and the cataract was removed using the phaco chop technique. Approximately 3 seconds of absolute phaco time was used. The remaining cortex was then removed using irrigation and aspiration with an I/A probe. The capsule was then filled with regular Amvisc and the capsule was noted to be intact. A previously selected foldable posterior chamber intraocular lens was then injected into the capsule through the corneal wound using a lens injector. It was then dialed into position using a [place]key hook. The Amvisc was then removed using irrigation and aspiration. Miostat was then injected through the paracentesis to constrict the pupil. The paracentesis and corneal wound were then hydrated and noted to be water tight. A drop of Maxitrol was then placed over the eye. The speculum was removed and clear shield was taped over the eye. The patient tolerated the procedure well and there were no surgical complications. The patient was asked to follow up in my office the next day. TEJAS MAURICIO M.D. ENZO/[id number]
[2018-04-06 14:36] VITALS: TEMP 98
[2018-04-06 14:43] VITALS: BP 136/70; PULSE 65
[2018-04-06] MEDS ORDERED: ACETAMINOPHEN 325 MG TABLET (FP) PO ONE (18:19)
== END 2018-04-06 13:00 | disposition home or self-care (01) ==
LOC: FASU 09:22
PROVIDERS: ATTEND Ophthalmology
PROC: 08RK3JZ Replacement of Left Lens with Synthetic Substitute, Percutaneous Approach (ICD-10-PCS; principal; 2018-04-06 11:01)
DX: H26.8 Other specified cataract (principal)
CPT/HCPCS: 82962